=== PATIENT | male | born 1980 | race Caucasian/White ===

== ENCOUNTER 2022-08-14 12:52 | Emergency (ER) | payer OTHER ==
[~2022-08-14] VITALS: Ht 170.2 cm; Wt 88.5 kg
[2022-08-14] MEDS ORDERED: IV NS 0.9% 1,000 ML BAG IV ONE (13:00)
--- NOTE | 2022-08-14 13:00 | NUR ---
BIB [facility] 90 S/P HAVING A WITNESSED SEIZURE FOR LESS THAT 1 MINUTE PT HAS HX OF NONCOMPLIANT WITH MEDICATION
[2022-08-14 13:33] LABS: ALANINE AMINOTRANSFERASE 34 U/L (12-78); ALBUMIN 4.2 g/dL (3.4-5.0); ALCOHOL, BLOOD < 3 mg/dL (0-0); ALKALINE PHOSPHATASE 129 U/L (46-116); ASPARTATE AMINOTRANSFERASE 25 U/L (15-37); BILIRUBIN,DIRECT 0.2 mg/dL (0.0-0.2); BILIRUBIN,TOTAL 0.7 mg/dL (0.2-1.0); CALCIUM, SERUM 9.7 mg/dL (8.5-10.1); CARBON DIOXIDE 32 mmol/L (21-32); CHLORIDE 101 mmol/L (98-107); CREATININE 1.1 mg/dL (0.6-1.3); GLUCOSE 117 mg/dL (74-106); POTASSIUM 4.4 mmol/L (3.5-5.1); SODIUM SERUM 137 mmol/L (136-145); TOTAL PROTEIN, SERUM 8.2 g/dL (6.4-8.2); UREA NITROGEN, BLOOD 12 mg/dL (7-18)
[2022-08-14] MEDS ORDERED: LEVETIRACETAM (500MG) 500 MG in IV NS 0.9% 100 ML IV STA (13:37)
[2022-08-14] MEDS ORDERED: LABETALOL HCL IV 100MG VIAL ONE (13:44)
[2022-08-14 14:00] LABS: BASOPHILS # (AUTO) 0.1 K/uL (0.0-0.2); BASOPHILS % (AUTO) 0.4 % (0.0-2.0); HEMATOCRIT 52 % (39-51); HEMOGLOBIN 16.6 g/dL (13.5-17.5); LYMPHOCYTES # (AUTO) 1.9 K/uL (0.8-4.8); LYMPHOCYTES % (AUTO) 14.2 % (20.0-44.0); MEAN CORPUSCULAR HGB CONC 32 g/dl (31.0-36.0); MEAN CORPUSCULAR VOLUME 91 fL (80-96); MONOCYTES # (AUTO) 0.9 K/uL (0.1-1.30); MONOCYTES % (AUTO) 6.9 % (2.0-12.0); NEUTROPHILS # (AUTO) 10.1 K/uL (1.8-8.9); NEUTROPHILS % (AUTO) 76.5 % (43.0-81.0); PLATELET COUNT (AUTO) 216 K/uL (150-450); RED BLOOD CELL COUNT(AUTO) 5.76 MIL/uL (4.5-6.0); WHITE BLOOD COUNT (AUTO) 13.2 K/uL (4.3-11.0)
[2022-08-14] MEDS ORDERED: LABETALOL HCL IV 100MG VIAL IV ONE (14:00)
[2022-08-14] MEDS ORDERED: LEVE500T9 PO (15:30)
[2022-08-14] MEDS ORDERED: METF-442 PO (15:30)
[2022-08-14] MEDS ORDERED: LISI20TA30 PO (15:30)
[2022-08-14] MEDS ORDERED: ALBU18HF2 INH (15:30)
--- NOTE | 2022-08-14 15:36 | NUR ---
CALLED [facility] TO SET UP S TRANSPORT ETA 170
--- NOTE | 2022-08-14 16:12 | NUR ---
[facility] BLS 380 TRANSPORT AT BEDSIDE FOR PICKUP.
--- NOTE | 2022-08-14 16:16 | NUR ---
IV removed. Catheter intact and site benign. Pressure and 4x4 applied to site. No bleeding noted.Patient discharged to home in stable condition. Written and verbal after care instructions given. Patient verbalizes understanding of instruction.
[2022-08-14 16:22] VITALS: BP 161/95
== END 2022-08-14 16:20 | disposition home or self-care (01) ==
LOC: ER 14:50
DX: G40.909 Epilepsy, unspecified, not intractable, without status epilepticus (principal); I10 Essential (primary) hypertension; E11.9 Type 2 diabetes mellitus without complications; Z88.2 Allergy status to sulfonamides; Z79.899 Other long term (current) drug therapy
CPT/HCPCS: 99284; 96365; 96361; 96375; 85025; 80048; 80076; 36415; 80320; J3490; J7030 ×2; J1953; G0480